=== PATIENT | female | born 1980 | race Caucasian/White ===

== ENCOUNTER 2020-07-05 06:00 | Day surgery (SDC) | payer OTHER | END 2020-07-05 10:35 | disposition home or self-care (01) | LOC: AMB-ENDOS 06:00 | PROVIDERS: ATTEND Surgery | DX: K29.50 Unspecified chronic gastritis without bleeding (principal); K44.9 Diaphragmatic hernia without obstruction or gangrene; Z20.828 Contact with and (suspected) exposure to other viral communicable diseases ==

== ENCOUNTER → 2021-01-17 08:00 | Outpatient (CLI) | payer OTHER | END | disposition home or self-care (01) | LOC: LAB 08:00 → ADM 15:15 → AMB-ENDOS 01-24 15:15 → EDSTATUS 01-24 15:15 | PROVIDERS: ATTEND Surgery | DX: K59.09 Other constipation (principal); D50.8 Other iron deficiency anemias; Z20.818 Contact with and (suspected) exposure to other bacterial communicable diseases; Z20.822 Contact with and (suspected) exposure to COVID-19 ==

== ENCOUNTER 2021-09-19 06:12 | Day surgery (SDC) | payer OTHER ==
[2021-09-19] MEDS ORDERED: CITRATE OF MAG296 ML PO (09:54)
== END 2021-09-19 11:45 | disposition home or self-care (01) ==
LOC: AMB-ENDOS 06:12
PROVIDERS: ATTEND Surgery
DX: K62.89 Other specified diseases of anus and rectum (principal); Z20.822 Contact with and (suspected) exposure to COVID-19